=== PATIENT | female | born 1990 | race Caucasian/White ===

== ENCOUNTER → 2016-07-26 15:00 | Emergency (ER) | payer OTHER ==
--- NOTE | ~2016-07-26 | CR63 ---
[facility] RADIOLOGY TEXT RESULTS PATIENT: OLIVA BACH LOCATION: [facility] : [birth year] UNIT #: [id number] AGE: [address]: Gregor Fam MD SEX: F ORDER DR: [id number] [place], [place] [address] [id number] MR#: [id number] Acc #: [id number] NAME: OLIVA BACH : 1990 SEX: F STUDY DATE/TIME: 07/26/2016 14:13 UNIT: [facility] ROOM: STUDY DESCRIPTION: CR Chest 2 View Attending Physician: Gregor Fam M.D. Ordering Physician: Gregor Fam M.D. Primary Care Physician: Rich Hunter M.D. MEDICAL IMAGING REPORT This report is preliminary unless electronic signature is present EXAM PA and lateral chest. INDICATION Cough, congestion, sinus pain for 5 days. COMPARISON STUDIES 02/02/2015 FINDINGS PA and lateral examination of the chest upright shows a good expansion of the parenchyma with a normal distribution of the pulmonary vascularity. There is no indication of congestion, effusion, infiltrate, tumor, or nodular density. The pleural reflections and diaphragmatic contours are normal. The cardiac silhouette and mediastinal anatomy is within normal limits. IMPRESSION Normal chest. Dictated by... Laureano Hines M.D. THIS IS AN ELECTRONICALLY VERIFIED REPORT Laureano Hines M.D. at 07/27/2016 11:16 AM MAG/nicolette TD: 07/26/2016 19:25 JOB #: [id number] MEDICAL IMAGING REPORT [facility] RADIOLOGY TEXT RESULTS PATIENT: OLIVA BACH LOCATION: [facility] : [birth year] UNIT #: [id number] AGE: [address]: Gregor Fam MD SEX: F ORDER DR: SUSY
[2016-07-26 14:28] LABS: INFLUENZA A POS (NEG); INFLUENZA B NEG (NEG)
[~2016-07-26 15:00] MED LIST: BACTRIM DS TABL1 TA1 PO; DEPO-PROVER150 MG/ML INJ; NO MEDICATIONS; ORUDIS75 M1 PO; ZOFRAN ODT4 MG/UDTAB PO
== END | disposition home or self-care (01) ==
LOC: CED 15:00
PROVIDERS: Emergency Medicine
DX: J11.1 Influenza due to unidentified influenza virus with other respiratory manifestations (principal)
CPT/HCPCS: 71020; 87651; 87804; 87880; 99283

== ENCOUNTER 2016-08-29 23:57 | Emergency (ER) | payer OTHER | END 2016-08-30 00:04 | disposition left against medical advice (07) | LOC: SED 23:57 | DX: Z53.21 Procedure and treatment not carried out due to patient leaving prior to being seen by health care provider (principal) ==